=== PATIENT | female | born 1960 | race Asian ===

== ENCOUNTER 2019-05-17 08:18 | Day surgery (SDC) | payer OTHER ==
[2019-05-17] MEDS ORDERED: LIDOCAINE 1% (MPF) 30 ML INJ (09:28)
[2019-05-17] MEDS ORDERED: LACTATED RINGER'S 1,000 ML IV (10:00)
[2019-05-17] MEDS ORDERED: hydrALAzine 20 MG INJ IV (10:00)
[2019-05-17] MEDS ORDERED: EPHEDrine 25 MG/5 ML SYG IV (10:00)
[2019-05-17] MEDS ORDERED: ALBUTEROL 0.083% (NEB) 2.5 MG/3 ML AMP HHN (10:00)
[2019-05-17] MEDS ORDERED: MEPERIDINE 25 MG INJ IV (10:00)
[2019-05-17] MEDS ORDERED: DIPHENHYDRAMINE 50 MG INJ IV (10:00)
[2019-05-17] MEDS ORDERED: MIDAZOLAM 1 MG/ML 2 ML INJ IV (10:00)
[2019-05-17] MEDS ORDERED: FENTAnyl 50 MCG/ML VIAL IV ×3 (10:00)
[2019-05-17] MEDS ORDERED: LABETALOL HCL 20MG INJ IV (10:00)
[2019-05-17] MEDS ORDERED: SOD CHLORIDE 0.9% 1,000 ML IV (10:00)
[2019-05-17] MEDS ORDERED: HYDROmorphONE 1 MG/5 ML IV SYRINGE IV ×2 (10:00)
[2019-05-17] MEDS ORDERED: IPRATROPIUM (NEB) 0.5 MG/2.5 ML AMP HHN (10:00)
[2019-05-17] MEDS ORDERED: TRIMETHOBENZAMIDE 100 MG/ML VIAL IM (10:00)
[2019-05-17] MEDS ORDERED: OXYCODONE/ACETAMINOPHEN (5/325) TAB PO (10:00)
[2019-05-17] MEDS ORDERED: ONDANSETRON 4 MG INJ IV (10:00)
[2019-05-17] MEDS ORDERED: NEOSTIGMINE 3 MG/3 ML SYRINGE (10:01)
[2019-05-17] MEDS ORDERED: CEFAZOLIN 1 GM INJ (10:01)
[2019-05-17] MEDS ORDERED: ROCURONIUM 50 MG INJ (10:01)
[2019-05-17] MEDS ORDERED: PROPOFOL 20 ML (10:01)
[2019-05-17] MEDS ORDERED: GLYCOPYRROLATE 0.4 MG INJ (10:01)
[2019-05-17] MEDS ORDERED: FENTAnyl 50 MCG/ML VIAL (10:02)
[2019-05-17] MEDS ORDERED: ONDANSETRON 4 MG INJ (10:02)
[2019-05-17] MEDS ORDERED: MIDAZOLAM 1 MG/ML 2 ML INJ (10:02)
[2019-05-17] MEDS ORDERED: DEXAMETHASONE 4 MG/ML 5 ML INJ (10:03)
[2019-05-17] MEDS: CEFAZOLIN 2 GM/50 ML (PMX) 50 ML IVPB (10:05)
[2019-05-17] MEDS: BUPIVACAINE 0.25% (MPF) 30 ML INJ (10:22)
[2019-05-17] MEDS: HYDROmorphONE 1 MG/5 ML IV SYRINGE IV (11:31)
[2019-05-17] MEDS: OXYCODONE/ACETAMINOPHEN (5/325) TAB PO (11:36)
== END 2019-05-17 15:50 | disposition home or self-care (01) ==
LOC: SDS 08:18
DX: M67.432 Ganglion, left wrist (principal); E11.9 Type 2 diabetes mellitus without complications; Z79.82 Long term (current) use of aspirin; Z79.84 Long term (current) use of oral hypoglycemic drugs; D17.22 Benign lipomatous neoplasm of skin and subcutaneous tissue of left arm
CPT/HCPCS: 25075; 82962; 88307